=== PATIENT | female | born 1985 | race Caucasian/White ===

== ENCOUNTER 2024-07-31 14:42 | Emergency (ER) | payer OTHER, SELFPAY ==
[2024-07-31 14:46] VITALS: BP 119/70; PULSE 81; RESP 16; TEMP 37.7; O2SAT 98
--- NOTE | 2024-07-31 14:55 | ED.GENADUL_ITS ---
Discharge Plan Disposition Patient Disposition: Home Condition: Stable Discharge Details Clinical Impression: Pharyngitis Primary Care Provider: Teresita,Local ED Provider: Navid Viveros Home Meds and New Rx's Prescriptions: New amoxicillin 500 mg tablet 500 mg PO BID 9 Days Qty: 18 0RF Continued citalopram [Celexa] 40 mg tablet 40 mg PO DAILY dextroamphetamine-amphetamine [Adderall] 15 mg tablet 15 mg PO DAILY Patient Comments: as needed Discharge Instructions Instructions: Amoxicillin, Sore Throat, Adult ED Additional Instructions: You were seen in the emergency department for your sore throat without upper respiratory infectious symptoms and a close contact with confirmed strep. I am treating empirically with amoxicillin, this was sent to the [facility] here in [place], please return to the emergency department for any failure to improve by day 5 of treatment, any decreased range of motion of the jaw, excessive drooling, severe vocal changes or neck pain. Discharge Data Discharge Date/Time-TO BE ENTERED AT DEPARTURE: 07/31/24 15:37 HPI General Date/Time Provider Initiated Documentation: 07/31/24 14:55 . HPI Narrative: 39 year-old female presents to ED today by POV/ambulating with a chief complaint of sore throat, since 07/29. Quality described as isolated scratchy throat, low-grade temperature, no radiation to cough, severe neck pain, trismus, vocal changes. Severity is described as moderate. Palliating factors include Dayquil today with some relief. Provoking factors include nothing specific. 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 Patient not anticoagulated. Related Data Home Medications ?Medication ?Instructions ?Recorded ?Confirmed amoxicillin 500 mg tablet 500 mg PO BID 9 days #18 tabs 07/31/24 citalopram 40 mg tablet (Celexa) 40 mg PO DAILY 07/31/24 07/31/24 dextroamphetamine-amphetamine 15 15 mg PO DAILY 07/31/24 07/31/24 mg tablet (Adderall) Previous Rx's ?Medication ?Instructions ?Recorded amoxicillin 500 mg tablet 500 mg PO BID 9 days #18 tabs 07/31/24 Allergies Allergy/AdvReac Type Severity Reaction Status Date / Time ciprofloxacin Allergy Hives Verified 07/31/24 14:57 NSAIDS (Non-Steroidal Allergy Hives Verified 07/31/24 14:57 Anti-Inflamma General Stated Complaint: Sorethroat AMBER: 4 Review of Systems All systems reviewed & are unremarkable except as noted in HPI and below Exam Narrative Exam Narrative: GENERAL APPEARANCE: Well-nourished, non-toxic, awake and alert, atraumatic, no acute distress. SKIN: Warm, pink, dry, intact, without rashes/lesions/ulcerations. HEAD: Normocephalic, atraumatic, normal hair distribution for gender/age. EYES: Normal conjunctiva, no exudates on lids/lashes. ENT: Nares patent, no circumoral cyanosis, no facial swelling, mild erythema diffusely to posterior oropharynx, uvula midline, no trismus, no vocal changes. NECK: Supple, trachea midline, painless cervical ROM. LUNGS/CHEST: Non-labored respirations, normal A/P diameter, symmetrical expansion, no chest wall deformity HEART (CV/PV): No peripheral edema, no JVD. ABDOMEN: Soft, non-distended, no guarding. MSK: Normal ROM, no swelling/deformity to bilateral UEs or LEs, moving all extremities without weakness, no cyanosis, spine midline without tenderness, normal curvature. NEURO: Mental Status AAOx4 - alert to person, place, time, events No facial droop, no forehead involvement. Motor: No focal weakness - strength 5/5 in bilateral UEs and LEs, proximal and distal, symmetric. Sensory: sensation intact to light touch globally. Gait normal: patient ambulated without ataxia into ED room. PSYCH: euthymic, cooperative, pleasant, appropriate speech Course Vital Signs Vital signs: Vital Signs Temperature 37.7 C H 07/31/24 14:46 Pulse 81 07/31/24 14:46 Respiratory Rate 16 07/31/24 14:46 Blood Pressure 119/70 07/31/24 14:46 Pulse Oximetry 98 07/31/24 14:46 Temperature 37.7 C H 07/31/24 14:46 Pulse 81 07/31/24 14:46 Respiratory Rate 16 07/31/24 14:46 Blood Pressure 119/70 07/31/24 14:46 Pulse Oximetry 98 07/31/24 14:46 Pain Level 5 07/31/24 14:46 Medical Decision Making This dictation utilizes [id number] dictation software and may contain unedited grammatical errors. 39 year-old female presents to ED today by POV/ambulating with a chief complaint of sore throat, since 07/29. Quality described as isolated scratchy throat, low-grade temperature, no radiation to cough, severe neck pain, trismus, vocal changes. Severity is described as moderate. Palliating factors include Dayquil today with some relief. Provoking factors include nothing specific. 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 Patients' medical history: Negative, otherwise healthy. Family and social history: Noncontributory. Pertinent exam findings / vital signs include mild erythema diffusely to posterior oropharynx, uvula midline, no trismus, no vocal changes. Differential / pathologies of concern include pharyngitis, likely strep pharyngitis with close contacts confirmed. Diagnostic studies of: -Rapid strep negative reflex to culture. Interventions of: -Treating empirically with amoxicillin. ED Course/Assessment/Plan: 39-year-old female nannies for child with strep throat, she then returned home for [employer] and now her family is also tested positive for strep. Going to treat her empirically with amoxicillin I recommend Tylenol and ibuprofen as needed for pain, salt water gargles and tea with honey for symptomatic relief, stress strict return criteria for trismus, vocal changes, neck pain, high fevers despite treatment and worsening despite treatment. Findings not consistent with deep space infection, airway compromise. Disposition of pharyngitis. Patient verbalized understanding of the plan and return to ED criteria and engaged in shared decision making. Medical Records Medical records reviewed: Yes I reviewed the patient's medical records. Lab Data Lab results reviewed: Yes I reviewed the patient's lab results. Lab results narrative: POC Rapid Strep negative Quality:SDOH Health Related Social Needs: No Data to Display PFSH All Active Problems (Updated 07/31/24 @ 15:19 by VARGHESE Hagan) Pharyngitis (Acute) Social History Smoking/Tobacco Use Status: Never Smoking risk assessment performed?: Yes Alcohol Intake: current Alcohol Intake frequency: holidays/special occasions only Alcohol type: wine Substance use type: does not use Do you feel safe at home: Yes Do you feel safe in your relationship?: Yes
[2024-07-31] MEDS: Amoxicillin 500 MG CAP 1000 MG PO (15:30)
== END 2024-07-31 15:37 | disposition home or self-care (01) ==
PROVIDERS: Emergency Provider Physician Assistant
DX: J02.9 Acute pharyngitis, unspecified (principal); R50.9 Fever, unspecified
CPT/HCPCS: 87880; 99284; 87081; 99283